=== PATIENT | female | born 2000 | race Caucasian/White ===

== ENCOUNTER 2024-11-04 20:28 | Emergency (ER) | payer OTHER, SELFPAY ==
[2024-11-04 20:37] VITALS: BP 160/85
--- NOTE | 2024-11-04 22:38 | ED.GENMED ---
History of Present Illness
<Mona León PA-C - Last Filed: 11/05/24 02:03>
General
Chief Complaint: Skin Problem
Source: patient
Exam Limitations: none
Time Seen by Provider: 11/04/24 22:33
Nursing documentation reviewed up to this point in time: agreed with
History of Present Illness
History of Present Illness:
24-year-old female with a past medical history of asthma, sinusitis, low estrogen, ADHD, mood disorder, who presents to the emergency department today with concerns of a rash that began approximately 24 hours ago. Initially, the patient noticed
some lesions on her arms but then noticed a lesion spread to her abdomen, back, limbs, and face. The lesions are described as raised itchy spots that do not resemble her previous experience of hives. Patient reports that the lesions are have not
been draining. She denies any fevers. She denies any recent contacts with damp clothes or hot tubs. She denies any contact with new body washes, sunscreens, detergents. Denies any contact with poison kandi. Of note, patient is concerned for
chickenpox. Notably, the patient's grandfather was diagnosed with shingles a week ago. Patient does note that she was vaccinated for chickenpox as a child.
Past History
<Mona León PA-C - Last Filed: 11/05/24 02:03>
Past History
ED Past Medical History: Asthma (Questionable)
ED Past Surgical History: None
Patient has exhibited threatening behavior?: No
Social History
Tobacco: Former smoker
Alcohol: None
Personal: Single
Living: with family
Review of Systems
<Mona León PA-C - Last Filed: 11/05/24 02:03>
Review of Systems
All Other Systems: ROS reviewed and negative except as documented in HPI and ROS
Phy Exam
<Mona León PA-C - Last Filed: 11/05/24 02:03>
Physical Exam
Physical Exam:
General: Patient is well appearing and in no acute distress; non-toxic
Skin: Raised vesicular lesions noted to the limbs, abdomen, buttocks, back, and face, no open draining lesions
Head: Normocephalic, atraumatic
Eyes: Sclera non-icteric. EOMs intact.
Mouth: No intraoral lesions
Cardiac: Regular rate and rhythm, no murmurs
Pulm: Normal respiratory effort
Neuro: CN II-XII intact, no focal neurologic deficits.
Psychiatric: Appropriate mood and affect.
Course
<Mona León PA-C - Last Filed: 11/05/24 02:03>
Orders/Labs/Results
Orders:
Orders
11/04/24 23:26
Famotidine [Pepcid] 40 mg PO NOW STA
Vital Signs
Initial and Last Documented VS:
Initial Vital Signs
Temp Pulse Resp Pulse Ox
98.7 F 83 18 98
11/04/24 20:33 11/04/24 20:33 11/04/24 20:33 11/04/24 20:33
Last Documented Vital Signs
Temp Pulse Resp BP Pulse Ox
98.7 F 83 18 160/85 98
11/04/24 20:33 11/04/24 20:33 11/04/24 20:33 11/04/24 20:37 11/04/24 22:40
<Dionte Mena DO - Last Filed: 11/04/24 23:01>
Orders/Labs/Results
Orders:
Orders
11/04/24 23:26
Famotidine [Pepcid] 40 mg PO NOW STA
Vital Signs
Initial and Last Documented VS:
Initial Vital Signs
Temp Pulse Resp Pulse Ox
98.7 F 83 18 98
11/04/24 20:33 11/04/24 20:33 11/04/24 20:33 11/04/24 20:33
Last Documented Vital Signs
Temp Pulse Resp BP Pulse Ox
98.7 F 83 18 160/85 98
11/04/24 20:33 11/04/24 20:33 11/04/24 20:33 11/04/24 20:37 11/04/24 22:40
<Mona León PA-C - Last Filed: 11/05/24 02:03>
MDM/Problems Addressed
Differential Diagnosis Includes:
Differentials include chickenpox/primary varicella, folliculitis, contact dermatitis, allergic reaction, psoriasis, shingles, atopic dermatitis, urticaria, viral exanthem, pityriasis rosea
MDM/Problems Addressed:
24-year-old female presents today with concerns of a diffuse vesicular rash. Most concerning for primary varicella versus folliculitis. Patient has no risk factors for folliculitis. Will initiate antiviral treatment at this time. Discussed
tricked follow-up and return precautions. Discussed using Benadryl as needed for itching at home. No other antihistamines. Patient stable for discharge. Patient has no red flag symptoms, no intraoral lesions, no peeling of the skin or
blistering. Patient stable for discharge.
<Mona León PA-C - Last Filed: 11/05/24 02:03>
*Pulse Oximetry
SaO2: 98
Patient hypoxic: no
*Critical Care Note
Total Time (30-74mins, 75-104mins- exclusive of procedures): Not Applicable
ED Attending Note
<Mona León PA-C - Last Filed: 11/05/24 02:03>
-
Portions of this chart may have been created with voice recognition software.� Occasional wrong word or��sound alike� substitutions may have occurred due to the inherent limitations of voice recognition software.
<Dionte Mena, DO - Last Filed: 11/04/24 23:01>
ED Attending Note
Patient seen and examined by attending physician: Yes
ED Attending Note:
24-year-old female exposed to shingles with a macular/pustular rash reminiscent of chickenpox. Patient to be treated. Patient was seen in conjunction with the PA. I have reviewed and agree with her history and treatment plan. On my independent
physical exam patient awake alert and oriented x 3 in minimal to no acute distress
Discharge Plan
Departure
Patient Disposition: Home (Routine Discharge)
Date of Disposition: 11/04/24
Time of Disposition: 23:14
Patient with high blood pressure during this ER visit?: Yes
Condition: Good
Discharge Problem:
Vesicular rash
Instructions: Skin Rash (DC), BLOOD PRESSURE
Prescriptions:
New
valacyclovir 1 gram tablet
1,000 mg PO TID 7 Days Qty: 21 0RF
No Action
Vitamin Tablet
1 tab PO DAILY
Referrals:
PRIVATE,PHYSICIAN [Active, Internal Medicine]
Stand Alone Forms: Return to Work
Activity Restrictions/Additional Instructions:
Valacyclovir has been sent to your pharmacy. You can take 1 g 3 times daily for 7 days. You can take Benadryl and famotidine as needed for itching. Please continue to monitor your symptoms. Please stay well-hydrated. Lesions usually crusted
over as they heal.
Should you see failure in improvement in the next week, worsening of the rash, blisters, peeling of the skin, trouble swallowing, intraoral lesions, persistent fevers, intractable nausea or vomiting, chest pain, shortness of breath, please return
to the ER.
Please follow-up with your primary care provider.
Interventions
Interventions:
*Risk Screen - Suicide Last Done: 11/04/24 20:37
*General Assessment Last Done: 11/04/24 20:37
*Neglect/Abuse Screening Last Done: 11/04/24 20:37
*Nursing Disposition Last Done: 11/04/24 23:25
ED-Skin Assessment Last Done: 11/04/24 22:30
Discharge Date and Time
Discharge Date/Time: 11/04/24 23:36
Print Language: SINHALA
[2024-11-04] MEDS: PEPCID 40 MG PO (23:34)
== END 2024-11-04 23:36 | disposition home or self-care (01) ==
LOC: EMR 20:28
PROVIDERS: EMERGENCY PHYSICIAN Student in an Organized Health Care Education/Training Program
DX: R23.8 Other skin changes (principal); R03.0 Elevated blood-pressure reading, without diagnosis of hypertension; J45.909 Unspecified asthma, uncomplicated; F39 Unspecified mood [affective] disorder; F90.9 Attention-deficit hyperactivity disorder, unspecified type; Z87.891 Personal history of nicotine dependence
CPT/HCPCS: 99283